=== PATIENT | male | born 1990 | race Hispanic/Latino ===

== ENCOUNTER → 2017-10-17 | Outpatient (CLI) | payer MEDICARE, OTHER ==
[~2017-10-17] VITALS: Ht 152.4 cm; Wt 86.2 kg
[~2017-10-17] MED LIST: CALCITRIOL0.5 MCG PO; COUMADIN5 MG PO; FOSRENOL1000 MG PO; HYDROCODON-ACE1 EA11 PO; IOPAMIDOL 300MG/ML 50ML INFUS..BTL IV ONE; LIDOCAINE HCL 2% LOCAL 20 ML VIAL ONE; RENVELA800 MG PO; SODIUM CHLORIDE 0.9% 500ML 0 ML ONE; TUMS200 MG PO; VENOFER100 MG/5 M IV; [UNRECOGNIZED DRUG - OTHER] IVP
== END ==
LOC: CATH LAB 09:52 → LAB 09:52 → EDSTATUS 10:00
PROVIDERS: ATTEND Radiology Vascular & Interventional Radiology
DX: Z01.818 Encounter for other preprocedural examination (principal); Z93.6 Other artificial openings of urinary tract status; Z53.8 Procedure and treatment not carried out for other reasons
CPT/HCPCS: C1769; J2001; Q9967; J7040

== ENCOUNTER → 2017-11-14 | Outpatient (RCR) | payer MEDICARE, OTHER ==
[~2017-11-14] MED LIST changes: -IOPAMIDOL 300MG/ML 50ML INFUS..BTL IV ONE; -LIDOCAINE HCL 2% LOCAL 20 ML VIAL ONE; +LIDOCAINE VISC 2% SOLN 15 ML UDC ONE; -SODIUM CHLORIDE 0.9% 500ML 0 ML ONE
== END ==
LOC: WCC 10-31 10:37
PROVIDERS: ATTEND Family Medicine
DX: T81.31XA Disruption of external operation (surgical) wound, not elsewhere classified, initial encounter (principal); Y83.5 Amputation of limb(s) as the cause of abnormal reaction of the patient, or of later complication, without mention of misadventure at the time of the procedure; B37.89 Other sites of candidiasis; B37.9 Candidiasis, unspecified; M86.69 Other chronic osteomyelitis, multiple sites; L89.153 Pressure ulcer of sacral region, stage 3; B95.7 Other staphylococcus as the cause of diseases classified elsewhere; B96.4 Proteus (mirabilis) (morganii) as the cause of diseases classified elsewhere; L89.322 Pressure ulcer of left buttock, stage 2; N18.6 End stage renal disease; Q05.2 Lumbar spina bifida with hydrocephalus; Z74.01 Bed confinement status

== ENCOUNTER → 2017-11-15 | Day surgery (SDC) | payer MEDICARE ==
[~2017-11-15] VITALS: Ht 152.4 cm; Wt 86.2 kg
[~2017-11-15] MED LIST changes: +IOPAMIDOL 300MG/ML 50ML INFUS..BTL IV ONE; +LIDOCAINE HCL 2% LOCAL 20 ML VIAL ONE; -LIDOCAINE VISC 2% SOLN 15 ML UDC ONE; +SODIUM CHLORIDE 0.9% 1000ML 1,000 ML ONE
--- OUTSIDE RECORDS SUMMARY | 2017-11-15 10:30 | XMS REPORT ---
Author Author [facility] Address Unknown Phone Unavailable Care Team Providers Care Escort Patients Name Role Phone RICHA BRAN Unavailable Unavailable Problems This patient has no known problems. Allergies, Adverse Reactions, Alerts This patient has no known allergies or adverse reactions. Medications This patient has no known medications. Results Test Description Test Time Test Comments Text Results Atomic Results Result Comments SPECIAL PROCEDURE IN [facility]SULT[facility] [place] [address] Patient Name: GARCIA SKY MR #: [id number] : 1990 Age/Sex: 26/M Req #: [id number] [facility] Physician: Ordered by: CANDELARIA DYER MD Report #: [id number] Location: [facility] Room/Bed: Procedure: [id number] IR/SPECIAL PROCEDURE IN [facility] CONSULTANT Exam Date: Exam Time: REPORT STATUS: Signed Nephroureteral catheter exchange June 14, 2017 Pre-Procedure Diagnosis: Spina bifida , paraplegia Post-procedure Diagnosis:Spina bifida, paraplegia Consumer Loan Officer: Rivera Bran Downstream Biomanufacturing Technician: None Sedation: None. Heart rate and oxygen saturation were monitored in real-time. Blood pressure was measured in 5 minute increments. Radiation Dose:1322.5 cGycm2 (Dose Area Product) Fluoroscopy time:1.3 minutes Estimate blood loss: <5 mL Blood administered : None Complications: None Implants/Grafts: 26 cm 10.2-Dutch nephroureteral stent Specimen: None Procedure: Informed consent was obtained and the patient placed prone. A timeout was performed. The indwelling catheter was prepped and draped in standard sterile fashion. Limited nephrostogram demonstrated a patent indwelling right nephroureteral stent with loops formed in the renal pelvis and urinary bladder. The catheter was severed and exchanged over a wire for a new 10.2-Dutch 26 cm nephroureteral stent. Contrast injection confirmed appropriate placement. The catheter was connected to gravity drainage and a sterile dressing applied. Findings: Decompressed right urinary collecting system in keeping with catheter function. Impression: 1. Successful right nephroureteral stent exchange (10.2-Dutch 26 cm). 2. Routine exchange is recommended in 3 months. A 24 cm catheter was not available today, but is the recommended length at the next routine exchange. This report was generated with voice-recognition technology. Errors in card puncher can occur. Please interpret accordingly and contact a radiologist if there are any questions regarding the report. Signed by: Dr. Richa Bran M.D. on 06/15/2017 10: 28 AM Dictated By: RICHA BRAN MD 1223 Transcribed By: WU on 06/19/17 1223 COPY TO: CANDELARIA DYER MD
--- OUTSIDE RECORDS SUMMARY | 2017-11-15 10:30 | XMS REPORT | Continuity of Care Document ---
Author Author [facility] Organization [facility] Address [address] [place] [address] Phone Unavailable Care Team Providers Care Psychologist Experimental Name Role Phone FRANSICO CONNELL MD PCP Insurance Providers Guarantor Erasmo Diaz Address [address] [place] [address] Email [email or web address] Payer [facility] Policy Number [id number] Subscriber's Name Erasmo Diaz Relationship 18 Self / Same As Patient Group Name RETIRED Effective Date 17 Payer Medicare A & B Policy Number [id number] Subscriber's Name Erasmo Diaz Relationship 18 Self / Same As Patient Group Number [id number] Group Name RETIRED Effective Date 11 Advance Directives Directive Response Recorded Date/Time Does the patient have an advance directive? No 11/25/08 4:41pm If yes, is advance directive on file with [facility]? No 11/25/08 4:41pm If not on file with [facility] will patient provide a copy? No 12/09/12 1:12pm Do you have a Directive to Physician? No 10/30/17 2:11pm Do you have a Medical Power of State'S Attorney? No 10/30/17 2:11pm Do you have an out of hospital Do Not Resuscitate Order? No 10/30/17 2:11pm Do you have any special needs we should be aware of? No 10/30/17 2:11pm Do you have a support person here with you today? No 10/30/17 2:11pm Did patient receive Notice of Privacy Practices? Yes 10/30/17 2:11pm Did patient receive patient rights and responsibilities? Yes 10/30/17 2:11pm Problems No problem information available. Medications Current Home Medications Medication Dose Units Route Directions Days Qty Instructions Start Date Calcium Carbonate (Tums) 200 Mg Tab.chew 2,000 Mg Oral Daily Hydrocodone Bit/Acetaminophen (Hydrocodon-Acetaminophen 5-325) 1 Each Tablet 1 Tab Oral Every 4 Hours as needed for Pain Sevelamer Hcl (Renvela) 800 Mg Tab 800 Mg Oral Three Times Daily With Meals Warfarin Sodium (Coumadin) 5 Mg Tablet 5 Mg Oral Daily 30 Tab Past Home Medications Medication Directions Ordered Status Calcitriol 0.5 Mcg Cap, 1.25 Mcg Oral Use As Directed Discontinued Iron Sucrose (Venofer) 100 Mg/5 Ml Vial, 50 Mg Intraven Weekly Discontinued Lanthanum Carbonate (Fosrenol) 1,000 Mg Tab.chew, 1000 Mg Oral Three Times Daily With Meals Discontinued Mircara , 75 Mcg Iv Push Use As Directed Discontinued Social History Social History Problem Response Recorded Date/Time Onset Date Status Hx Substance Use Disorder No 10/17/2017 10:09am Not Applicable Not Applicable Hx Alcohol Use No 10/17/2017 10:09am Not Applicable Not Applicable Hospital Discharge Instructions No hospital discharge instruction information available. Plan of Care Prescriptions See Medication Section Functional Status No functional status information available. Allergies, Adverse Reactions, Alerts No known allergies. Immunizations No immunization information available. Vital Signs No vital sign information available. Results No relevant diagnostic test, laboratory data and/or discharge summary information available. Procedures Procedure Status Date Provider(s) Cath, drainage Completed 06/14/17 RICHA MOORE MD Encounters Encounter Location Arrival/Admit Date Discharge/Depart Date Attending Provider Discharged Recurring [facility] 11/14/17 11:30am 11:59pm SHEN HUFF MD Registered Clinic [facility] 10/17/17 9:52am RICHA MOORE MD Registered Surgical Day Care [facility] 06/14/17 10:57am RICHA MOORE MD Registered Surgical Day Care [facility] 02/19/17 10:09am RICHA MOORE MD
--- NOTE | 2017-11-22 13:25 | Diagnostic Imaging Report ---
Nephroureteral catheter exchange 11/15/2017 Pre-Procedure Diagnosis: Spina bifida, paraplegia Post-procedure Diagnosis:Spina bifida, paraplegia Caser Up: Rivera Bran Patient Biller: None Sedation: None. Heart rate and oxygen saturation were monitored in real-time. Blood pressure was measured in 5 minute increments. Radiation Dose:1422.8 cGycm2 (Dose Area Product) Fluoroscopy time:2.1 minutes Estimate blood loss: <5 mL Blood administered: None Complications: None Implants/Grafts: 24 cm 10.2-Yakut nephroureteral stent Specimen: None Procedure: Informed consent was obtained and the patient placed prone. A timeout was performed. The indwelling catheter was prepped and draped in standard sterile fashion. Limited nephrostogram demonstrated a patent indwelling right nephroureteral stent with loops formed in the renal pelvis and urinary bladder. The catheter was severed and exchanged over a wire for a new 10.2-Yakut 24 cm nephroureteral stent. Contrast injection confirmed appropriate placement. The catheter was connected to gravity drainage and a sterile dressing applied. Findings: Decompressed right urinary collecting system in keeping with catheter function. Impression: 1. Successful right nephroureteral stent exchange (10.2-Yakut 24 cm). 2. Routine exchange is recommended in 3 months. This report was generated with voice-recognition technology. Errors in professor of early childhood education can occur. Please interpret accordingly and contact a radiologist if there are any questions regarding the report. Signed by: Dr. Arthur Bran M.D. on 11/15/2017 12:24 PM
== END | disposition home or self-care (01) ==
LOC: EDSTATUS 10:00 → CATH LAB 10:27
PROVIDERS: ATTEND Radiology Vascular & Interventional Radiology
DX: Z46.6 Encounter for fitting and adjustment of urinary device (principal); Z43.6 Encounter for attention to other artificial openings of urinary tract; Q05.9 Spina bifida, unspecified; G82.20 Paraplegia, unspecified
CPT/HCPCS: 50435; C1729; J2001; J7030; Q9967; 77001

== ENCOUNTER 2017-12-05 11:06 | Outpatient (RCR) | payer MEDICARE ==
[~2017-12-05 11:06] MED LIST changes: -IOPAMIDOL 300MG/ML 50ML INFUS..BTL IV ONE; -LIDOCAINE HCL 2% LOCAL 20 ML VIAL ONE; -SODIUM CHLORIDE 0.9% 1000ML 1,000 ML ONE
[2017-12-05] MEDS ORDERED: LIDOCAINE VISC 2% SOLN 15 ML UDC ONE (13:09)
== END 2017-12-15 ==
LOC: WCC 11:06
PROVIDERS: ATTEND Family Medicine
DX: L89.153 Pressure ulcer of sacral region, stage 3 (principal); Y83.5 Amputation of limb(s) as the cause of abnormal reaction of the patient, or of later complication, without mention of misadventure at the time of the procedure; B37.89 Other sites of candidiasis; B37.9 Candidiasis, unspecified; N18.6 End stage renal disease; Q05.2 Lumbar spina bifida with hydrocephalus; Z74.01 Bed confinement status

== ENCOUNTER 2017-12-26 11:17 | Outpatient (RCR) | payer MEDICARE ==
[2017-12-26] MEDS ORDERED: NYSTATIN 15 GM POWDER UD BTL ONE (17:47)
== END 2018-01-14 ==
LOC: WCC 11:17
PROVIDERS: ATTEND Family Medicine
DX: B37.89 Other sites of candidiasis (principal); B37.9 Candidiasis, unspecified; L89.153 Pressure ulcer of sacral region, stage 3; Y83.5 Amputation of limb(s) as the cause of abnormal reaction of the patient, or of later complication, without mention of misadventure at the time of the procedure; N18.6 End stage renal disease; Q05.2 Lumbar spina bifida with hydrocephalus; Z74.01 Bed confinement status

== ENCOUNTER → 2018-02-05 | Day surgery (SDC) | payer MEDICARE ==
[~2018-02-05] VITALS: Ht 152.4 cm; Wt 86.2 kg
[~2018-02-05] MED LIST changes: +LIDOCAINE HCL 2% LOCAL 20 ML VIAL ONE; +SODIUM CHLORIDE 0.9% 250ML 250 ML ONE
--- OUTSIDE RECORDS SUMMARY | 2018-02-05 12:45 | XMS REPORT | Continuity of Care Document ---
Author Author [facility] Organization [facility] Address [address] [place] [address] Phone Unavailable Care Team Providers Care Printing Plate Maker Name Role Phone FRANSICO CONNELL MD PCP Insurance Providers Guarantor Erasmo Diaz Address [address] [place] [address] Email [email or web address] Payer [facility] Policy Number [id number] Subscriber's Name Erasmo Diaz Relationship 18 Self / Same As Patient Group Name RETIRED Effective Date 10/18/17 Payer Medicare A & B Policy Number [id number] Subscriber's Name Erasmo Diaz Relationship 18 Self / Same As Patient Group Number [id number] Group Name RETIRED Effective Date 01/15/11 Advance Directives Directive Response Recorded Date/Time Does the patient have an advance directive? No 11/25/08 4:41pm If yes, is advance directive on file with [facility]? No 11/25/08 4:41pm If not on file with [facility] will patient provide a copy? No 12/09/12 1:12pm Do you have a Directive to Physician? No 12/25/17 1:11pm Do you have a Medical Power of Thermal Spray Operator? No 12/25/17 1:11pm Do you have an out of hospital Do Not Resuscitate Order? No 12/25/17 1:11pm Do you have any special needs we should be aware of? No 12/25/17 1:11pm Do you have a support person here with you today? No 12/25/17 1:11pm Did patient receive Notice of Privacy Practices? Yes 12/25/17 1:11pm Did patient receive patient rights and responsibilities? Yes 12/25/17 1:11pm Problems No problem information available. Medications Current [...] Date Status Hx Substance Use Disorder No 11/15/2017 10:44am Not Applicable Not Applicable Hx Alcohol Use No 11/15/2017 10:44am Not Applicable Not Applicable Hospital Discharge Instructions [...] Cath, drainage Completed 06/14/17 RICHA MOORE MD Cath, drainage Completed 11/15/17 Encounters Encounter Location Arrival/Admit Date Discharge/Depart Date Attending Provider Discharged [facility]ring [facility] 12/26/17 11:17am 11:59pm SHEN HUFF MD Discharged [facility] 12/05/17 11:06am 11:59pm SHEN HUFF MD Registered [facility] 11/15/17 10:27am RICHA MOORE MD Discharged [facility] 10/31/17 10:37am 11:59pm SHEN HUFF MD Registered Clinic [facility] 10/17/17 9:52am RICHA MOORE MD Registered [facility] Day [facility] 06/14/17 10:57am RICHA MOORE MD
[2018-02-05 13:55] VITALS: BP 92/49
--- NOTE | 2018-02-14 15:23 | Diagnostic Imaging Report ---
Nephroureteral catheter exchange 02/05/2018 Pre-Procedure Diagnosis: Spina bifida, paraplegia Post-procedure Diagnosis:Spina bifida, paraplegia Casting Inspector: Rivera Bran Armed Security Officer: None Sedation: None. Heart rate and oxygen saturation were monitored in real-time. Blood pressure was measured in 5 minute increments. Radiation Dose:224 cGycm2 (Dose Area Product) Fluoroscopy time:0.5 minutes Estimate blood loss: None. Blood administered: None Complications: None Implants/Grafts: 24 cm 10.2-Kyrgyz nephroureteral stent Specimen: None Procedure: Informed consent was obtained and the patient placed prone. A timeout was performed. The indwelling catheter was prepped and draped in standard sterile fashion. Limited nephrostogram demonstrated a patent indwelling right nephroureteral stent with loops formed in the renal pelvis and urinary bladder. The catheter was severed and exchanged over a wire for a new 10.2-Kyrgyz 24 cm nephroureteral stent. Contrast injection confirmed appropriate placement. The catheter was connected to gravity drainage and a sterile dressing applied. Findings: Decompressed right urinary collecting system in keeping with catheter function. Impression: 1. Successful right nephroureteral stent exchange (10.2-Kyrgyz 24 cm). 2. Routine exchange is recommended in 3 months. This report was generated with voice-recognition technology. Errors in travel insurance agent can occur. Please interpret accordingly and contact a radiologist if there are any questions regarding the report. Signed by: Dr. Arthur Bran M.D. on 02/05/2018 1:57 PM
== END | disposition home or self-care (01) ==
LOC: CATH LAB 12:43 → EDSTATUS 13:00
PROVIDERS: ATTEND Radiology Vascular & Interventional Radiology
DX: Z46.6 Encounter for fitting and adjustment of urinary device (principal); Z79.01 Long term (current) use of anticoagulants
CPT/HCPCS: 50435; 75984; C1769; J2001; J7050; 77001

== ENCOUNTER 2018-03-06 12:00 | Outpatient (RCR) | payer MEDICARE ==
[~2018-03-06 12:00] MED LIST changes: -LIDOCAINE HCL 2% LOCAL 20 ML VIAL ONE; -SODIUM CHLORIDE 0.9% 250ML 250 ML ONE
== END 2018-03-16 ==
LOC: WCC 12:00
PROVIDERS: ATTEND Family Medicine
DX: B37.9 Candidiasis, unspecified (principal); S30.810A Abrasion of lower back and pelvis, initial encounter; N18.6 End stage renal disease; Q05.2 Lumbar spina bifida with hydrocephalus; Y83.5 Amputation of limb(s) as the cause of abnormal reaction of the patient, or of later complication, without mention of misadventure at the time of the procedure; Z74.01 Bed confinement status

== ENCOUNTER 2018-04-10 14:45 | Outpatient (RCR) | payer MEDICARE ==
[~2018-04-10 14:45] MED LIST changes: +HYDROCORTISONE 1% CREAM 30 GM TUBE ONE; +LIDOCAINE VISC 2% SOLN 15 ML UDC ONE; +MUPIROCIN 2% OINT 22 GM TUBE ONE
[2018-04-10] MEDS ORDERED: MUPIROCIN 2% OINT 22 GM TUBE ONE (17:58)
[2018-04-10] MEDS ORDERED: LIDOCAINE VISC 2% SOLN 15 ML UDC ONE (17:58)
== END 2018-04-16 ==
LOC: WCC 14:45
PROVIDERS: ATTEND Family Medicine
DX: S30.810A Abrasion of lower back and pelvis, initial encounter (principal); Y83.5 Amputation of limb(s) as the cause of abnormal reaction of the patient, or of later complication, without mention of misadventure at the time of the procedure; B37.9 Candidiasis, unspecified; N18.6 End stage renal disease; Q05.2 Lumbar spina bifida with hydrocephalus; Z74.01 Bed confinement status

== ENCOUNTER → 2018-04-19 | Day surgery (SDC) | payer MEDICARE, MEDICAID ==
[~2018-04-19] VITALS: Ht 152.4 cm; Wt 86.2 kg
[~2018-04-19] MED LIST changes: -HYDROCORTISONE 1% CREAM 30 GM TUBE ONE; +LIDOCAINE HCL 2% LOCAL 20 ML VIAL ONE; -LIDOCAINE VISC 2% SOLN 15 ML UDC ONE; -MUPIROCIN 2% OINT 22 GM TUBE ONE; +SODIUM CHLORIDE 0.9% 500ML 500 ML ONE
--- NOTE | 2018-05-06 13:18 | Diagnostic Imaging Report ---
Date and Time: 04/19/2018 Procedure: Right nephroureteral catheter exchange centrifugal extractor operator: Dr. Hernandez Assistants: None Pre-operative diagnosis: Spina bifida, paraplegia Post-operative diagnosis: Spina bifida, paraplegia Conscious Sedation: None The patient's heart rate and pulse oximetry were continuously monitored by the interventional radiology nurse. Blood pressure was monitored at 5 minute intervals. Additional Medications: Lidocaine 1% for local anesthesia Fluoroscopy time: 1.4 minutes Dose-area Product: 1524.1 cGycm2 Contrast used: 10 cc Isovue 300 Estimated blood loss: Minimal Specimens: None Implants: 10.2 Cayman Islander 24 cm interloop length nephroureteral catheter. DISCUSSION: Informed consent was obtained and documented in the medical record. The patient was placed in the prone position on the fluoroscopic table. The right flank was prepped and draped in standard sterile fashion. Contrast was injected through the existing of free ureteral catheter confirming position within the upper collecting system, with the distal locking loop in the urinary bladder. The catheter was cut and a stiff hydrophilic wire was advanced through the catheter and coiled within the urinary bladder. The existing catheter was removed and a new 10.2 Cay[place] Islander 24 cm interloop length nephroureteral catheter was advanced over the wire. The wire was removed. The distal locking loop was formed in the urinary bladder. The proximal locking loop was formed in the renal pelvis. Appropriate positioning was confirmed by injection of dilute contrast material. The catheter was flushed with sterile saline, connected to gravity drainage, and a sterile dressing was applied. The patient tolerated the procedure well without immediate complication. IMPRESSION: Successful routine exchange of a 10.2 Cay[place] Islander, 24 cm interloop length right nephroureteral catheter. The patient should return to interventional radiology for routine exchange in 3 months. Signed by: Dr. Juwan Hernandez M.D. on 04/19/2018 10:31 AM
== END | disposition home or self-care (01) ==
LOC: EDSTATUS 08:00 → CATH LAB 08:04
PROVIDERS: ATTEND Urology
DX: Z46.6 Encounter for fitting and adjustment of urinary device (principal); Q05.9 Spina bifida, unspecified; G82.20 Paraplegia, unspecified; Z93.6 Other artificial openings of urinary tract status
CPT/HCPCS: 50387; J2001; J7040

== ENCOUNTER 2018-06-03 04:54 | Emergency (ER) | payer MEDICARE, OTHER ==
[~2018-06-03] VITALS: Ht 152.4 cm; Wt 86.2 kg
[~2018-06-03 04:54] MED LIST changes: -LIDOCAINE HCL 2% LOCAL 20 ML VIAL ONE; -SODIUM CHLORIDE 0.9% 500ML 500 ML ONE
[2018-06-03 06:47] VITALS: BP 122/74
== END 2018-06-03 06:51 | disposition home or self-care (01) ==
LOC: ER 04:54
DX: N99.528 Other complication of incontinent external stoma of urinary tract (principal); Q05.9 Spina bifida, unspecified; N18.6 End stage renal disease; Z99.2 Dependence on renal dialysis; Z95.2 Presence of prosthetic heart valve
CPT/HCPCS: 99282

== ENCOUNTER → 2018-06-28 | Day surgery (SDC) | payer MEDICARE, OTHER ==
[~2018-06-28] VITALS: Ht 152.4 cm; Wt 86.2 kg
[~2018-06-28] MED LIST changes: +IOPAMIDOL 300MG/ML 100 ML INFUS..BTL IV ONE; +IOPAMIDOL 300MG/ML 50ML INFUS..BTL IV ONE; +SODIUM CHLORIDE 0.9% 500ML 500 ML ONE
--- NOTE | 2018-07-03 10:44 | Diagnostic Imaging Report ---
Procedure: Right nephroureteral catheter exchange with fluoroscopic guidance uniform cap operator: Sydni Kirkpatrick MD Assistants: None Pre-operative diagnosis: Spina bifida, paraplegia Post-operative diagnosis: Spina bifida, paraplegia Conscious Sedation: None The patient's heart rate and pulse oximetry were continuously monitored by the interventional radiology nurse. Blood pressure was monitored at 5 minute intervals. Additional Medications: Lidocaine 1% for local anesthesia Fluoroscopy time: 3.8 minutes Dose-area Product: 3106.9 cGycm2 Contrast used: 10 cc Isovue 300 Estimated blood loss: Minimal Specimens: None Implants: 10.2 Niuean 24 cm interloop length nephroureteral catheter. DISCUSSION: Informed consent was obtained and documented in the medical record. The patient was placed in the prone position on the fluoroscopic table. The right flank was prepped and draped in standard sterile fashion. Initial cover cutter machine fluoroscopy demonstrated that the catheter was partially retracted with the distal pigtail in the mid ureter and proximal pigtail external to the patient. The catheter was cut and an .035'' Amplatz wire was advanced through the catheter and coiled within the mid ureter. The catheter was removed. Subsequently, a 65 cm Ames catheter was placed and navigated into the bladder along with the Amplatz wire. The Ames catheter was removed. Subsequently, a new 10.2 Fr x 24 cm nephroureteral catheter was advanced over the wire. The wire was removed. The distal locking loop was formed in the urinary bladder. The proximal locking loop was formed in the renal pelvis. Appropriate positioning was confirmed by injection of dilute contrast material. Serosanguinous urine was aspirated. The catheter was flushed with sterile saline, connected to gravity drainage, and a sterile dressing was applied. The patient tolerated the procedure well without immediate complication. IMPRESSION: Fluoroscopic exchange/rescue of a 10.2 Niuean, 24 cm interloop length right nephroureteral catheter. The patient should return to interventional radiology for routine exchange in 3 months. Signed by: Dr. Sydni Kirkpatrick MD on 06/28/2018 4:28 PM
== END | disposition home or self-care (01) ==
LOC: EDSTATUS 09:00 → CATH LAB 10:15
PROVIDERS: ATTEND Radiology Diagnostic Radiology
DX: Q05.9 Spina bifida, unspecified (principal); G82.20 Paraplegia, unspecified; Z46.6 Encounter for fitting and adjustment of urinary device; Z79.01 Long term (current) use of anticoagulants
CPT/HCPCS: 50435; C1769; C1887; J7040; Q9967 ×2

== ENCOUNTER 2018-10-02 13:53 | Outpatient (RCR) | payer MEDICARE, OTHER ==
[~2018-10-02 13:53] MED LIST changes: -IOPAMIDOL 300MG/ML 100 ML INFUS..BTL IV ONE; -IOPAMIDOL 300MG/ML 50ML INFUS..BTL IV ONE; -SODIUM CHLORIDE 0.9% 500ML 500 ML ONE
[2018-10-02] MEDS ORDERED: CLOTRIMAZOLE/BETAMETHASONE 45 GM CR TP ONE (17:25)
== END 2018-10-17 ==
LOC: WCC 13:53
PROVIDERS: ATTEND Family Medicine
DX: B37.9 Candidiasis, unspecified (principal); N18.6 End stage renal disease; Q05.2 Lumbar spina bifida with hydrocephalus; S30.810A Abrasion of lower back and pelvis, initial encounter; Y83.5 Amputation of limb(s) as the cause of abnormal reaction of the patient, or of later complication, without mention of misadventure at the time of the procedure; Z74.01 Bed confinement status

== ENCOUNTER → 2018-10-04 | Day surgery (SDC) | payer MEDICARE, OTHER ==
[~2018-10-04] VITALS: Ht 152.4 cm; Wt 99.8 kg
[~2018-10-04] MED LIST changes: +FENTANYL CITRATE/PF 100MCG/2 ML INJ ONE; +LIDOCAINE HCL 2% LOCAL 20 ML VIAL ONE; +MIDAZOLAM HCL 2 MG/2 ML VIAL ONE; +SODIUM CHLORIDE 0.9% 1000ML 0 ML ONE; +SODIUM CHLORIDE 0.9% 500ML 500 ML ONE
[2018-10-04 10:40] VITALS: BP 151/57
[2018-10-04 12:15] VITALS: BP 145/64
--- NOTE | 2018-10-04 12:15 | NUR ---
POST R NEPHROSTOMY TUBE CHANGE OUT, SITE C/D/I NO S/S OF INFECTION, 50ML YELLOW URINE TO COLLECTION BAG NOTED. AAOX4, VSS. WRITTEN AND VERBAL DISCHARGE INSTRUCTIONS PROVIDED TO PT AND MOTHER, VERIFIED BY RETURN DEMONSTRATION. DISCHARGED TO POV BY PERSONAL W/C IN STABLE CONDITION, MOTHER DRIVING.
--- NOTE | 2018-10-08 10:28 | Diagnostic Imaging Report ---
Date and Time: 10/04/2018 Procedure: Right nephroureteral catheter exchange pickle water pump operator: Dr. Hernandez Pre-operative diagnosis: Indwelling right nephroureteral catheter Post-operative diagnosis: Indwelling right nephroureteral catheter Conscious Sedation: None The patient's heart rate and pulse oximetry were continuously monitored by the interventional radiology nurse. Blood pressure was monitored at 5 minute intervals. Additional Medications: Lidocaine 1% for local anesthesia Fluoroscopy time: 0.9 minutes Dose-area Product: 924 cGycm2 Contrast used: 30 cc Isovue 300 Estimated blood loss: Minimal Specimens: Percutaneous nephroureteral catheter discarded Implants: 8.5 Spanish, 24 cm interloop length nephroureteral catheter DISCUSSION: Informed consent was obtained and documented in the medical record after discussion of risks and benefits. Patient was placed in the prone position on the fluoroscopic table. The right flank and existing catheter were prepped and draped in the standard sterile fashion. A small amount contrast material was injected through the existing catheter confirming appropriate positioning. The catheter was severed and a 0.0 3 5-in. stiff Glidewire was advanced through the catheter and coiled within the urinary bladder. The catheter was removed over the wire and a new 8.5 Spanish, 24 cm interloop length nephroureteral catheter was advanced over the wire which was then removed. The proximal locking loop was formed in the renal pelvis. The distal locking loop was formed in the urinary bladder. The catheter was flushed copiously with sterile saline after position was confirmed by injection of dilute contrast material. Catheter was secured to the skin with monofilament nylon suture and connected to gravity drainage. A sterile dressing was applied. FINDINGS: Indwelling right percutaneous nephroureteral catheter IMPRESSION: Successful fluoroscopic guided exchange of a right percutaneous nephroureteral catheter (8.5 Spanish, 24 cm interloop length). The patient should return to interventional radiology in 3 months for routine catheter exchange. Signed by: Dr. Juwan Hernandez M.D. on 10/04/2018 1:40 PM
== END | disposition home or self-care (01) ==
LOC: CATH LAB 09:12 → EDSTATUS 09:30
PROVIDERS: ATTEND Radiology Diagnostic Radiology
DX: Z93.6 Other artificial openings of urinary tract status (principal); Z79.01 Long term (current) use of anticoagulants
CPT/HCPCS: 50435; 75984; C1769; C2625; J2001; J7040; J2250; J7030

== ENCOUNTER 2018-12-04 12:33 | Outpatient (RCR) | payer MEDICARE, OTHER ==
[~2018-12-04 12:33] MED LIST changes: -FENTANYL CITRATE/PF 100MCG/2 ML INJ ONE; -LIDOCAINE HCL 2% LOCAL 20 ML VIAL ONE; -MIDAZOLAM HCL 2 MG/2 ML VIAL ONE; -SODIUM CHLORIDE 0.9% 1000ML 0 ML ONE; -SODIUM CHLORIDE 0.9% 500ML 500 ML ONE
== END 2018-12-15 ==
LOC: WCC 12:33
PROVIDERS: ATTEND Family Medicine
DX: B37.9 Candidiasis, unspecified (principal); N18.6 End stage renal disease; Q05.2 Lumbar spina bifida with hydrocephalus; Y83.5 Amputation of limb(s) as the cause of abnormal reaction of the patient, or of later complication, without mention of misadventure at the time of the procedure; Z74.01 Bed confinement status

== ENCOUNTER → 2018-12-25 | Day surgery (SDC) | payer MEDICARE, OTHER ==
[~2018-12-25] MED LIST changes: +LIDOCAINE HCL 2% LOCAL 20 ML VIAL ONE; +SODIUM CHLORIDE 0.9% 500ML 500 ML ONE
[2018-12-25 14:30] VITALS: BP 120/60
[2018-12-25 15:30] VITALS: BP 132/80
--- NOTE | 2018-12-30 14:11 | Diagnostic Imaging Report ---
Date and Time: 12/25/2018 Procedure: Right nephroureteral catheter exchange foxing cutting machine operator: Dr. Hernandez Pre-operative diagnosis: Indwelling right nephroureteral catheter Post-operative diagnosis: Indwelling right nephroureteral catheter Conscious Sedation: None The patient's heart rate and pulse oximetry were continuously monitored by the interventional radiology nurse. Blood pressure was monitored at 5 minute intervals. Additional Medications: Lidocaine 1% for local anesthesia Fluoroscopy time: 0.9 minutes Dose-area Product: 657 cGycm2 Contrast used: 10 cc Isovue 300 Estimated blood loss: Minimal Specimens: Percutaneous nephroureteral catheter discarded Implants: 8.5 Romansh, 24 cm interloop length nephroureteral catheter DISCUSSION: Informed consent was obtained and documented in the medical record after discussion of risks and benefits. Patient was placed in the prone position on the fluoroscopic table. The right flank and existing catheter were prepped and draped in the standard sterile fashion. A small amount contrast material was injected through the existing catheter confirming appropriate positioning. The catheter was severed and a 0.0 3 5-in. stiff Glidewire was advanced through the catheter and coiled within the urinary bladder. The catheter was removed over the wire and a new 8.5 Romansh, 24 cm interloop length nephroureteral catheter was advanced over the wire which was then removed. The proximal locking loop was formed in the renal pelvis. The distal locking loop was formed in the urinary bladder. The catheter was flushed copiously with sterile saline after position was confirmed by injection of dilute contrast material. Catheter was secured to the skin with monofilament nylon suture and connected to gravity drainage. A sterile dressing was applied. FINDINGS: Indwelling right percutaneous nephroureteral catheter IMPRESSION: Successful fluoroscopic guided exchange of a right percutaneous nephroureteral catheter (8.5 Romansh, 24 cm interloop length). The patient should return to interventional radiology in 3 months for routine catheter exchange. Signed by: Dr. Juwan Hernandez M.D. on 12/26/2018 8:08 AM
== END | disposition home or self-care (01) ==
LOC: EDSTATUS 14:00 → CATH LAB 14:04
PROVIDERS: ATTEND Radiology Diagnostic Radiology
DX: Z46.6 Encounter for fitting and adjustment of urinary device (principal); Z93.6 Other artificial openings of urinary tract status; Q05.9 Spina bifida, unspecified; Z79.01 Long term (current) use of anticoagulants
CPT/HCPCS: 50435; 75984; C2625; J2001; J7040

== ENCOUNTER → 2019-04-15 | Outpatient (CLI) | payer MEDICARE ==
[~2019-04-15] MED LIST changes: +IOPAMIDOL 300 MG/ML 15ML VIAL IT ONE; +LIDOCAINE HCL 1% LOCAL INJ 20 ML VIAL ONE; -LIDOCAINE HCL 2% LOCAL 20 ML VIAL ONE; -SODIUM CHLORIDE 0.9% 500ML 500 ML ONE
--- NOTE | 2019-04-17 10:32 | Diagnostic Imaging Report ---
PROCEDURE: Genitourinary catheter exchange Procedural Personnel Attending physician(s): Alexandria Mckeon MD Fellow physician(s): None Resident physician(s): None Advanced practice provider(s): None Pre-procedure diagnosis: Ureteral obstruction Post-procedure diagnosis: Same Indication: Routine exchange Additional clinical history: None Complications: No immediate complications. IMPRESSION: Successful exchange of right nephroureteral catheter for a new 8.5 [place] nephroureteral catheter. Plan: Routine exchange in 2-3 months. PROCEDURE SUMMARY - Target organ: Unilateral [place] kidney - Antegrade nephrostogram(s) via the existing access - Nephroureteral tube exchange - Additional procedure(s): None PROCEDURE DETAILS: Pre-procedure Consent: Informed consent for the procedure including risks, benefits and alternatives was obtained and time-out was performed prior to the procedure. Preparation: The site was prepared and draped using maximal sterile barrier technique including cutaneous antisepsis. Anesthesia/sedation Level of anesthesia/sedation: No sedation Anesthesia/sedation administered by: Independent trained observer under attending supervision with continuous monitoring of the patient?s level of consciousness and physiologic status Right genitourinary catheter exchange Local anesthesia was administered. Initial nephrostogram was performed. A wire was placed through the existing tube and it was removed. The new tube was advanced over the wire and position was confirmed with contrast injection. Pre-existing genitourinary catheter: Cook 8.5Fr PCNU Genitourinary catheter(s) placed: Cook 8.5Fr PCNU Findings: Distal loop in bladder, proximal loop in right renal pelvis. External catheter securement: Non-absorbable suture Additional genitourinary system intervention Genitourinary intervention: None Location of intervention: Not applicable Device used: Not applicable Description of intervention: Not applicable Post-intervention findings: Not applicable Contrast Contrast agent: Isovue 300 Contrast volume (mL): 10 Radiation Dose Fluoroscopy time (minutes): 1.3 Reference air kerma (mGy): 29.5 Additional Details Additional description of procedure: None Equipment details: None Specimens removed: None Estimated blood loss (mL): Less than 10 Standardized report: [email or web address] Attestation Signer name: Alexandria Mckeon MD I attest that I was present for the entire procedure. I reviewed the stored images and agree with the report as written. Signed by: Alexandria Mckeon MD on 04/17/2019 10:28 AM
== END ==
LOC: DX 10:53
PROVIDERS: ATTEND Internal Medicine Nephrology
DX: Z43.6 Encounter for attention to other artificial openings of urinary tract (principal)
CPT/HCPCS: 50387; C1769; J2001; Q9967; 87071; 87075; 87186; 87205

== ENCOUNTER 2019-05-07 10:27 | Outpatient (RCR) | payer MEDICARE ==
[~2019-05-07 10:27] MED LIST changes: -IOPAMIDOL 300 MG/ML 15ML VIAL IT ONE; -LIDOCAINE HCL 1% LOCAL INJ 20 ML VIAL ONE; +MUPIROCIN 2% OINT 22 GM TUBE ONE
[2019-05-07] MEDS ORDERED: LIDOCAINE/PRILOCAINE 2.5-2.5% KIT ONE (18:43)
[2019-05-07] MEDS ORDERED: MUPIROCIN 2% OINT 22 GM TUBE ONE (18:43)
== END 2019-05-17 ==
LOC: WCC 10:27
PROVIDERS: ATTEND Family Medicine
DX: S31.105A Unspecified open wound of abdominal wall, periumbilic region without penetration into peritoneal cavity, initial encounter (principal); Y83.5 Amputation of limb(s) as the cause of abnormal reaction of the patient, or of later complication, without mention of misadventure at the time of the procedure; Y84.9 Medical procedure, unspecified as the cause of abnormal reaction of the patient, or of later complication, without mention of misadventure at the time of the procedure; B37.9 Candidiasis, unspecified; N18.6 End stage renal disease; Q05.2 Lumbar spina bifida with hydrocephalus; Z74.01 Bed confinement status

== ENCOUNTER → 2019-06-25 | Outpatient (CLI) | payer MEDICARE, OTHER ==
[~2019-06-25] MED LIST changes: +IOPAMIDOL 300 MG/ML 15ML VIAL IT ONE; +LIDOCAINE HCL 1% LOCAL INJ 20 ML VIAL ONE; -MUPIROCIN 2% OINT 22 GM TUBE ONE
--- NOTE | 2019-06-25 16:02 | Diagnostic Imaging Report ---
PROCEDURE: Genitourinary catheter exchange Procedural Personnel Attending physician(s): Alexandria Mckeon MD Fellow physician(s): None Resident physician(s): None Advanced practice provider(s): None Pre-procedure diagnosis: Ureteral obstruction Post-procedure diagnosis: Same Indication: Routine exchange Additional clinical history: None Complications: No immediate complications. IMPRESSION: Successful exchange of right nephroureteral catheter for a new 8.5 [place] x 24cm nephroureteral catheter. Plan: Routine exchange in 2-3 months. PROCEDURE SUMMARY - Target organ: Unilateral [place] kidney - Antegrade nephrostogram(s) via the existing access - Nephroureteral tube exchange - Additional procedure(s): None PROCEDURE DETAILS: Pre-procedure Consent: Informed consent for the procedure including risks, benefits and alternatives was obtained and time-out was performed prior to the procedure. Preparation: The site was prepared and draped using maximal sterile barrier technique including cutaneous antisepsis. Anesthesia/sedation Level of anesthesia/sedation: No sedation Anesthesia/sedation administered by: Independent trained observer under attending supervision with continuous monitoring of the patient?s level of consciousness and physiologic status Right genitourinary catheter exchange Local anesthesia was administered. Initial nephrostogram was performed. A wire was placed through the existing tube and it was removed. The new tube was advanced over the wire and position was confirmed with contrast injection. Pre-existing genitourinary catheter: Cook 8.5Fr x 24cm PCNU Genitourinary catheter(s) placed: Cook 8.5Fr x 24cm PCNU Findings: Distal loop in bladder, proximal loop in right renal pelvis. External catheter securement: Non-absorbable suture Additional genitourinary system intervention Genitourinary intervention: None Location of intervention: Not applicable Device used: Not applicable Description of intervention: Not applicable Post-intervention findings: Not applicable Contrast Contrast agent: Isovue 300 Contrast volume (mL): 10 Radiation Dose Fluoroscopy time (minutes): 1.7 Reference air kerma (mGy): 32.7 Additional Details Additional description of procedure: None Equipment details: None Specimens removed: None Estimated blood loss (mL): Less than 10 Standardized report: [email or web address] Attestation Signer name: Alexandria Mckeon MD I attest that I was present for the entire procedure. I reviewed the stored images and agree with the report as written. Signed by: Alexandria Mckeon MD on 06/25/2019 3:59 PM
== END ==
LOC: DX 13:52
PROVIDERS: ATTEND Internal Medicine Nephrology
DX: Z43.6 Encounter for attention to other artificial openings of urinary tract (principal)
CPT/HCPCS: 50431; C1769; C2625; J2001; Q9967

== ENCOUNTER → 2019-07-25 | Outpatient (CLI) | payer MEDICARE, OTHER ==
[~2019-07-25] MED LIST changes: -IOPAMIDOL 300 MG/ML 15ML VIAL IT ONE; -LIDOCAINE HCL 1% LOCAL INJ 20 ML VIAL ONE
--- NOTE | 2019-07-25 16:55 | Diagnostic Imaging Report ---
Parathyroid Scan with SPECT Reason for exam: Hyperparathyroidism. ESRD; patient is on dialysis. Radiopharmaceutical: Tc-99m sestamibi 25.5 mCi IV LAC After intravenous administration of the radiopharmaceutical, immediate and 2-hour planar images of the neck and upper chest were obtained. Tomographic images of the neck and upper chest were also obtained following the initial planar images. Distribution of tracer activity appears physiologic throughout the neck and upper chest on the planar and tomographic images. No focal areas of increased tracer accumulation are identified. On the delayed planar images, washout of tracer from the thyroid is complete with no focal areas of persistent tracer activity. Impression: Negative parathyroid scan No enlarged hypermetabolic parathyroid glands are identified. Signed by: Dr. Mary Ellen Velásquez M.D. on 07/25/2019 4:51 PM
== END ==
LOC: NM 12:01
PROVIDERS: ATTEND Internal Medicine Nephrology
DX: E21.3 Hyperparathyroidism, unspecified (principal); N18.6 End stage renal disease; Z99.2 Dependence on renal dialysis
CPT/HCPCS: 78071; A9500

== ENCOUNTER 2019-11-12 14:19 | Outpatient (RCR) | payer MEDICARE ==
[2019-11-12 13:09] LABS: BASOPHILS % 0.4 % (0.0-1.0); EOSINOPHILS # (AUTO) 0.2 (0.0-0.4); EOSINOPHILS % 3.4 % (0.0-6.0); HEMATOCRIT 32.4 % (38.2-49.6); LYMPHOCYTES # (AUTO) 1.3 (1.0-3.2); LYMPHOCYTES % 24.9 % (18.0-39.1); MEAN CORPUSCULAR HEMOGLOBIN 31.1 pg (28-32); MEAN CORPUSCULAR HGB CONC 30.9 g/dL (31-35); MEAN CORPUSCULAR VOLUME 100.6 fL (81-99); MONOCYTES # (AUTO) 0.2 (0.2-0.8); MONOCYTES % 4.6 % (4.4-11.3); NEUTROPHILS # (AUTO) 3.5 (2.1-6.9); NEUTROPHILS % 66.1 % (38.7-80.0); PLATELET COUNT 212 x10e3/uL (140-360); RED BLOOD COUNT 3.22 x10e6/uL (4.3-5.7); RED CELL DISTRIBUTION WIDTH 13.9 % (11.7-14.4)
[2019-11-12 13:38] LABS: ANION GAP 17.6 mmol/L (8-16); CALCIUM 7.5 mg/dL (8.4-10.2); CREATININE, SERUM 5.89 mg/dL (0.72-1.25); POTASSIUM 4.6 mmol/L (3.5-5.1)
[2019-11-12] MEDS ORDERED: CLOTRIMAZOLE/BETAMETHASONE 45 GM CR TP ONE (14:42)
[2019-11-12] MEDS ORDERED: LIDOCAINE VISC 2% SOLN 15 ML UDC ONE (14:42)
== END 2019-11-15 ==
LOC: WCC 14:19
PROVIDERS: ATTEND Family Medicine
DX: L89.152 Pressure ulcer of sacral region, stage 2 (principal); L89.312 Pressure ulcer of right buttock, stage 2; Y84.9 Medical procedure, unspecified as the cause of abnormal reaction of the patient, or of later complication, without mention of misadventure at the time of the procedure; Y83.5 Amputation of limb(s) as the cause of abnormal reaction of the patient, or of later complication, without mention of misadventure at the time of the procedure; B37.9 Candidiasis, unspecified; N18.6 End stage renal disease; Q05.2 Lumbar spina bifida with hydrocephalus; Z74.01 Bed confinement status
CPT/HCPCS: 36415; 80048; 84134; 85025

== ENCOUNTER → 2019-11-19 | Outpatient (CLI) | payer MEDICARE, OTHER ==
[~2019-11-19] MED LIST changes: +IOPAMIDOL 300MG/ML 100 ML INFUS..BTL IV ONE; +LEVOFLOXACIN 250 MG TAB ONE; +LIDOCAINE HCL 1% LOCAL INJ 20 ML VIAL ONE; +SODIUM CHLORIDE 0.9% 250ML 250 ML ONE
--- NOTE | 2019-11-19 11:09 | Diagnostic Imaging Report ---
PROCEDURE: Genitourinary catheter exchange Procedural Personnel Attending physician(s): Alexandria Mckeon MD Fellow physician(s): None Resident physician(s): None Advanced practice provider(s): None Pre-procedure diagnosis: Ureteral obstruction Post-procedure diagnosis: Same Indication: Routine exchange Additional clinical history: None Complications: No immediate complications. IMPRESSION: Successful exchange of right nephroureteral catheter for a new 8.5 [place] x 24cm nephroureteral catheter. Plan: Routine exchange in 2 months. PROCEDURE SUMMARY - Target organ: Unilateral [place] kidney - Antegrade nephrostogram(s) via the existing access - Nephroureteral tube exchange - Additional procedure(s): None PROCEDURE DETAILS: Pre-procedure Consent: Informed consent for the procedure including risks, benefits and alternatives was obtained and time-out was performed prior to the procedure. Preparation: The site was prepared and draped using maximal sterile barrier technique including cutaneous antisepsis. Anesthesia/sedation Level of anesthesia/sedation: No sedation Anesthesia/sedation administered by: Independent trained observer under attending supervision with continuous monitoring of the patient?s level of consciousness and physiologic status Right genitourinary catheter exchange Local anesthesia was administered. Initial nephrostogram was performed. A wire was placed through the existing tube and it was removed. The new tube was advanced over the wire and position was confirmed with contrast injection. Pre-existing genitourinary catheter: Cook 8.5Fr PCNU Genitourinary catheter(s) placed: Cook 8.5Fr PCNU Findings: Distal loop in bladder, proximal loop in right renal pelvis. External catheter securement: Non-absorbable suture Additional genitourinary system intervention Genitourinary intervention: None Location of intervention: Not applicable Device used: Not applicable Description of intervention: Not applicable Post-intervention findings: Not applicable Contrast Contrast agent: Isovue 300 Contrast volume (mL): 10 Radiation Dose Fluoroscopy time (minutes): 1.4 Reference air kerma (mGy): 27.9 Additional Details Additional description of procedure: None Equipment details: None Specimens removed: None Estimated blood loss (mL): Less than 10 Standardized report: [email or web address] Attestation Signer name: Alexandria Mckeon MD I attest that I was present for the entire procedure. I reviewed the stored images and agree with the report as written. Signed by: Alexandria Mckeon MD on 11/19/2019 11:05 AM
== END ==
LOC: DX 09:03
PROVIDERS: ATTEND Internal Medicine Nephrology
DX: Z93.6 Other artificial openings of urinary tract status (principal)
CPT/HCPCS: 50431; C1769; J2001; J7050; Q9967

== ENCOUNTER 2019-12-10 14:48 | Outpatient (RCR) | payer MEDICARE, OTHER ==
[~2019-12-10 14:48] MED LIST changes: -IOPAMIDOL 300MG/ML 100 ML INFUS..BTL IV ONE; -LEVOFLOXACIN 250 MG TAB ONE; -LIDOCAINE HCL 1% LOCAL INJ 20 ML VIAL ONE; +LIDOCAINE VISC 2% SOLN 15 ML UDC ONE; +LIDOCAINE/PRILOCAINE 2.5-2.5% KIT ONE; -SODIUM CHLORIDE 0.9% 250ML 250 ML ONE
== END 2019-12-16 ==
LOC: WCC 14:48
PROVIDERS: ATTEND Family Medicine
DX: L89.312 Pressure ulcer of right buttock, stage 2 (principal); L89.152 Pressure ulcer of sacral region, stage 2; Y84.9 Medical procedure, unspecified as the cause of abnormal reaction of the patient, or of later complication, without mention of misadventure at the time of the procedure; Y83.5 Amputation of limb(s) as the cause of abnormal reaction of the patient, or of later complication, without mention of misadventure at the time of the procedure; B37.9 Candidiasis, unspecified; N18.6 End stage renal disease; Q05.2 Lumbar spina bifida with hydrocephalus; Z74.01 Bed confinement status
CPT/HCPCS: 11042; 15271; 99213; Q4186

== ENCOUNTER 2020-01-28 14:06 | Outpatient (RCR) | payer MEDICARE, OTHER ==
[~2020-01-28 14:06] MED LIST changes: -LIDOCAINE VISC 2% SOLN 15 ML UDC ONE; -LIDOCAINE/PRILOCAINE 2.5-2.5% KIT ONE
[2020-01-28] MEDS ORDERED: LIDOCAINE VISC 2% SOLN 15 ML UDC ONE ×2 (17:29→19:19)
== END 2020-02-15 ==
LOC: WCC 14:06
PROVIDERS: ATTEND Family Medicine
DX: L89.312 Pressure ulcer of right buttock, stage 2 (principal); B37.9 Candidiasis, unspecified; N18.6 End stage renal disease; Q05.2 Lumbar spina bifida with hydrocephalus; Y83.5 Amputation of limb(s) as the cause of abnormal reaction of the patient, or of later complication, without mention of misadventure at the time of the procedure; Y84.9 Medical procedure, unspecified as the cause of abnormal reaction of the patient, or of later complication, without mention of misadventure at the time of the procedure; Z74.01 Bed confinement status
CPT/HCPCS: 15271; 15272; Q4186

== ENCOUNTER → 2020-01-30 | Outpatient (CLI) | payer MEDICARE, OTHER ==
[~2020-01-30] MED LIST changes: +IOPAMIDOL 300MG/ML 100 ML INFUS..BTL IV ONE; +LIDOCAINE HCL 1% LOCAL INJ 20 ML VIAL ONE
== END ==
LOC: DX 13:21
PROVIDERS: ATTEND Internal Medicine Nephrology
DX: Z43.6 Encounter for attention to other artificial openings of urinary tract (principal); N18.6 End stage renal disease
CPT/HCPCS: 50387; 87635; J2001; Q9967; C1769; C2625

== ENCOUNTER 2020-03-24 11:00 | Outpatient (RCR) | payer MEDICARE, OTHER ==
[~2020-03-24 11:00] MED LIST changes: -IOPAMIDOL 300MG/ML 100 ML INFUS..BTL IV ONE; -LIDOCAINE HCL 1% LOCAL INJ 20 ML VIAL ONE
== END 2020-04-16 ==
LOC: WCC 11:00
PROVIDERS: ATTEND Family Medicine
DX: L89.312 Pressure ulcer of right buttock, stage 2 (principal); Y84.9 Medical procedure, unspecified as the cause of abnormal reaction of the patient, or of later complication, without mention of misadventure at the time of the procedure; B37.9 Candidiasis, unspecified; N18.6 End stage renal disease; Q05.2 Lumbar spina bifida with hydrocephalus; Y83.5 Amputation of limb(s) as the cause of abnormal reaction of the patient, or of later complication, without mention of misadventure at the time of the procedure; Z74.01 Bed confinement status

== ENCOUNTER → 2020-05-05 | Outpatient (CLI) | payer MEDICARE, OTHER ==
[~2020-05-05] MED LIST changes: +IOPAMIDOL 300MG/ML 100 ML INFUS..BTL IV ONE; +LIDOCAINE HCL 1% LOCAL INJ 20 ML VIAL ONE; +SODIUM CHLORIDE 0.9% 250ML 250 ML ONE
--- NOTE | 2020-05-05 15:55 | Diagnostic Imaging Report ---
PROCEDURE: Genitourinary catheter exchange Procedural Personnel Attending physician(s): Clyde West MD Fellow physician(s): None Resident physician(s): None Advanced practice provider(s): None Pre-procedure diagnosis: Ureteral obstruction Post-procedure diagnosis: Same Indication: Routine exchange Additional clinical history: None Complications: No immediate complications. IMPRESSION: Successful exchange of right nephroureteral catheter for a new 8.5 [place] x 24cm nephroureteral catheter. Plan: Routine exchange in 2 months. PROCEDURE SUMMARY - Target organ: Unilateral [place] kidney - Antegrade nephrostogram(s) via the existing access - Nephroureteral tube exchange - Additional procedure(s): None PROCEDURE DETAILS: Pre-procedure Consent: Informed consent for the procedure including risks, benefits and alternatives was obtained and time-out was performed prior to the procedure. Preparation: The site was prepared and draped using maximal sterile barrier technique including cutaneous antisepsis. Anesthesia/sedation Level of anesthesia/sedation: No sedation Anesthesia/sedation administered by: Independent trained observer under attending supervision with continuous monitoring of the patient?s level of consciousness and physiologic status Right genitourinary catheter exchange Local anesthesia was administered. Initial nephrostogram was performed. A wire was placed through the existing tube and it was removed. The new tube was advanced over the wire and position was confirmed with contrast injection. Pre-existing genitourinary catheter: Cook 8.5Fr PCNU Genitourinary catheter(s) placed: Cook 8.5Fr PCNU Findings: Distal loop in bladder, proximal loop in right renal pelvis. External catheter securement: None Additional genitourinary system intervention Genitourinary intervention: None Location of intervention: Not applicable Device used: Not applicable Description of intervention: Not applicable Post-intervention findings: Not applicable Contrast Contrast agent: Isovue 300 Contrast volume (mL): 10 Radiation Dose Fluoroscopy time (minutes): 1.2 Reference air kerma (mGy): 23.3 Additional Details Additional description of procedure: None Equipment details: None Specimens removed: None Estimated blood loss (mL): Less than 10 Standardized report: [email or web address] Attestation Signer name: Clyde West MD I attest that I was present for the entire procedure. I reviewed the stored images and agree with the report as written. Signed by: Clyde West MD on 05/05/2020 3:52 PM
== END ==
LOC: DX 14:36
PROVIDERS: ATTEND Internal Medicine Nephrology
DX: Z43.6 Encounter for attention to other artificial openings of urinary tract (principal)
CPT/HCPCS: J2001; J7050; Q9967; 50387

== ENCOUNTER 2020-06-30 14:37 | Outpatient (RCR) | payer MEDICARE, MEDICAID ==
[~2020-06-30 14:37] MED LIST changes: -IOPAMIDOL 300MG/ML 100 ML INFUS..BTL IV ONE; -LIDOCAINE HCL 1% LOCAL INJ 20 ML VIAL ONE; -SODIUM CHLORIDE 0.9% 250ML 250 ML ONE
== END 2020-07-17 ==
LOC: WCC 14:37
PROVIDERS: ATTEND Family Medicine
DX: L89.312 Pressure ulcer of right buttock, stage 2 (principal); Y84.9 Medical procedure, unspecified as the cause of abnormal reaction of the patient, or of later complication, without mention of misadventure at the time of the procedure; B37.9 Candidiasis, unspecified; N18.6 End stage renal disease; Q05.2 Lumbar spina bifida with hydrocephalus; Y83.5 Amputation of limb(s) as the cause of abnormal reaction of the patient, or of later complication, without mention of misadventure at the time of the procedure; Z74.01 Bed confinement status

== ENCOUNTER → 2020-08-11 | Outpatient (CLI) | payer MEDICARE, OTHER ==
[~2020-08-11] MED LIST changes: +IOPAMIDOL 300MG/ML 100 ML INFUS..BTL IV ONE; +LIDOCAINE HCL 1% LOCAL INJ 20 ML VIAL ONE; +SODIUM CHLORIDE 0.9% 250ML 250 ML ONE
== END ==
LOC: DX 14:08
PROVIDERS: ATTEND Internal Medicine Nephrology
DX: Z43.6 Encounter for attention to other artificial openings of urinary tract (principal)
CPT/HCPCS: C2625; J2001; J7050; Q9967; 50387

== ENCOUNTER 2020-10-29 14:24 | Emergency (ER) | payer MEDICARE, OTHER ==
[~2020-10-29] VITALS: Ht 152.4 cm; Wt 90.7 kg
[~2020-10-29 14:24] MED LIST changes: -IOPAMIDOL 300MG/ML 100 ML INFUS..BTL IV ONE; -LIDOCAINE HCL 1% LOCAL INJ 20 ML VIAL ONE; -SODIUM CHLORIDE 0.9% 250ML 250 ML ONE
[2020-10-29] MEDS ORDERED: LIDOCAINE HCL 1% LOCAL INJ 20 ML VIAL ONE (15:07)
[2020-10-29] MEDS ORDERED: IOPAMIDOL 300 MG/ML 15ML VIAL IT ONE (15:07)
[2020-10-29] MEDS ORDERED: CEFUROXIME250 MG PO (16:16)
[2020-10-29 16:33] VITALS: BP 140/70
[2020-10-29 16:42] LABS: CLARITY,URINE TURBID (CLEAR); COLOR,URINE BROWN (YELLOW); KETONES,URINE NEGATIVE (NEGATIVE); LEUKOCYTE ESTERASE ,URINE LARGE (NEGATIVE); NITRITE,URINE NEGATIVE (NEGATIVE); PROTEIN,URINE DIPSTICK >=300 (NEGATIVE); URINE UROBILINOGEN 0.2 mg/dL (0.2 - 1)
[2020-10-29 16:43] LABS: BACTERIA,URINE FEW /HPF; RBC,URINE 21-50 /HPF (0-5); WBC,URINE (MAN) >50 /HPF (0-5)
== END 2020-10-29 16:35 | disposition home or self-care (01) ==
LOC: ER 14:46
DX: N99.524 Stenosis of incontinent stoma of urinary tract (principal); N18.6 End stage renal disease; Z99.2 Dependence on renal dialysis; Q05.9 Spina bifida, unspecified; Z89.612 Acquired absence of left leg above knee; Y84.6 Urinary catheterization as the cause of abnormal reaction of the patient, or of later complication, without mention of misadventure at the time of the procedure; Z79.01 Long term (current) use of anticoagulants; Z86.16 Personal history of COVID-19
CPT/HCPCS: 50435; 74470; 81001; 87086; 87186; 99283; Q9967; 50387; J2001

== ENCOUNTER 2020-12-08 13:33 | Outpatient (RCR) | payer MEDICARE, OTHER ==
[~2020-12-08 13:33] MED LIST changes: +CEFUROXIME250 MG PO
[2020-12-08] MEDS ORDERED: CLOTRIMAZOLE/BETAMETHASONE 45 GM CR TP ONE (13:52)
[2020-12-08] MEDS ORDERED: LIDOCAINE VISC 2% SOLN 15 ML UDC ONE (13:52)
== END 2020-12-15 ==
LOC: WCC 13:33
PROVIDERS: ATTEND Family Medicine
DX: L89.312 Pressure ulcer of right buttock, stage 2 (principal); Y84.9 Medical procedure, unspecified as the cause of abnormal reaction of the patient, or of later complication, without mention of misadventure at the time of the procedure; B37.9 Candidiasis, unspecified; N18.6 End stage renal disease; Q05.2 Lumbar spina bifida with hydrocephalus; Y83.5 Amputation of limb(s) as the cause of abnormal reaction of the patient, or of later complication, without mention of misadventure at the time of the procedure; Z74.01 Bed confinement status

== ENCOUNTER 2020-12-22 16:27 | Outpatient (RCR) | payer MEDICARE, OTHER ==
[~2020-12-22 16:27] MED LIST changes: +LIDOCAINE VISC 2% SOLN 15 ML UDC ONE
== END 2021-01-14 ==
LOC: WCC 16:27
PROVIDERS: ATTEND Family Medicine
DX: L89.312 Pressure ulcer of right buttock, stage 2 (principal); Y84.9 Medical procedure, unspecified as the cause of abnormal reaction of the patient, or of later complication, without mention of misadventure at the time of the procedure; B37.9 Candidiasis, unspecified; N18.6 End stage renal disease; Q05.2 Lumbar spina bifida with hydrocephalus; Y83.5 Amputation of limb(s) as the cause of abnormal reaction of the patient, or of later complication, without mention of misadventure at the time of the procedure; Z74.01 Bed confinement status

== ENCOUNTER → 2021-02-07 | Outpatient (CLI) | payer OTHER, MEDICARE ==
[~2021-02-07] MED LIST changes: +LIDOCAINE HCL 1% LOCAL INJ 20 ML VIAL ONE; -LIDOCAINE VISC 2% SOLN 15 ML UDC ONE; +SODIUM CHLORIDE 0.9% 250ML 250 ML ONE
== END ==
LOC: DX 13:58
PROVIDERS: ATTEND Internal Medicine Nephrology
DX: Z43.6 Encounter for attention to other artificial openings of urinary tract (principal)
CPT/HCPCS: 50431; C1769; J2001; J7050; 50387

== ENCOUNTER → 2021-04-08 | Outpatient (CLI) | payer MEDICARE, OTHER ==
[~2021-04-08] MED LIST changes: -LIDOCAINE HCL 1% LOCAL INJ 20 ML VIAL ONE; -SODIUM CHLORIDE 0.9% 250ML 250 ML ONE
== END ==
LOC: RAD 15:21
PROVIDERS: ATTEND Anesthesiology Pain Medicine
DX: M54.5 Low back pain (principal); M25.552 Pain in left hip; M25.551 Pain in right hip
CPT/HCPCS: 72110; 73521

== ENCOUNTER → 2021-05-25 | Outpatient (CLI) | payer MEDICARE, OTHER ==
[~2021-05-25] MED LIST changes: +IOPAMIDOL 300MG/ML 100 ML INFUS..BTL IV ONE; +IOPAMIDOL 370 MG/ML 200 ML INFUS..BTL INJ ONE; +LIDOCAINE HCL 1% LOCAL INJ 20 ML VIAL ONE; +SODIUM CHLORIDE 0.9% 100 ML ONE; +SODIUM CHLORIDE 0.9% 250ML 250 ML ONE
== END ==
LOC: DX 13:02
PROVIDERS: ATTEND Internal Medicine Nephrology
DX: Z43.6 Encounter for attention to other artificial openings of urinary tract (principal)
CPT/HCPCS: 50431; J2001; J7050 ×2; Q9967 ×2; 50387

== ENCOUNTER → 2021-09-23 | Outpatient (CLI) | payer MEDICARE, OTHER ==
[~2021-09-23] MED LIST changes: -SODIUM CHLORIDE 0.9% 100 ML ONE
== END ==
LOC: DX 13:29
PROVIDERS: ATTEND Internal Medicine Nephrology
DX: Z43.6 Encounter for attention to other artificial openings of urinary tract (principal)
CPT/HCPCS: 50431; C1769; C2625; J2001; J7050; Q9967 ×2; 50387

== ENCOUNTER → 2022-01-20 | Outpatient (CLI) | payer MEDICARE, OTHER ==
[~2022-01-20] MED LIST changes: -IOPAMIDOL 370 MG/ML 200 ML INFUS..BTL INJ ONE; -LIDOCAINE HCL 1% LOCAL INJ 20 ML VIAL ONE
== END ==
LOC: DX 12:49
PROVIDERS: ATTEND Internal Medicine Nephrology
DX: Z43.6 Encounter for attention to other artificial openings of urinary tract (principal)
CPT/HCPCS: 50431; J7050; Q9967; 50387; C1769; C2625